=== PATIENT | male | born 1965 | race African-American/Black ===

== ENCOUNTER 2018-10-01 22:27 | Inpatient (IN) | payer OTHER, MEDICAID ==
[~2018-10-01] VITALS: Ht 182.9 cm; Wt 135.2 kg
[2018-10-01 22:33] VITALS: BP 151/82
[2018-10-01] MEDS ORDERED: HYDR100T79 PO (22:39)
[2018-10-01] MEDS ORDERED: LISI30TA6 PO (22:39)
[2018-10-01] MEDS ORDERED: TAMS0.4C96 PO (22:39)
--- NOTE | 2018-10-01 22:40 | NUR ---
ASSUMED CARE OF PT AT THIS TIME. C/O DIFFUSE ABDOMINAL PAIN X 3 DAYS. PT STATES BLACK STOOLS BEGAN EARLIER TODAY. PT STATES HE TAKES "BABY ASPIRIN" ONCE A DAY. AAOX4 WITH EVEN AND STEADY GAIT; PATIENT STATES PAIN OF 8/10; VSS; PATIENT POSITIONED FOR COMFORT; HOB ELEVATED; BEDRAILS UP X2; BED DOWN. ER MD MADE AWARE OF PT STATUS. WILL CONTINUE TO MONITOR.
--- NOTE | 2018-10-01 22:40 | NUR ---
PT AMB TO ER BED 8
[2018-10-01] MEDS ORDERED: NACL 0.9% 1,000 ML IV SCH (23:21)
[2018-10-01] MEDS ORDERED: fentaNYL 0.05 MG/ML VIAL IVP ONE (23:25)
[2018-10-01 23:53] LABS: BASOPHILS % (AUTO) 0.7 % (0.0-2.0); EOSINOPHILS # (AUTO) 0.2 K/uL (0-0.4); EOSINOPHILS % (AUTO) 3.4 % (0.0-4.0); HEMATOCRIT 38.2 % (36-52); LYMPHOCYTES # (AUTO) 1.6 K/uL (2.0-11.5); LYMPHOCYTES % (AUTO) 27.9 % (20.5-51.1); MEAN CORPUSCULAR HEMOGLOBIN 25 pg (27-31); MEAN CORPUSCULAR HGB CONC 31 g/dL (33-37); MEAN CORPUSCULAR VOLUME 78.8 fL (80-94); MONOCYTES # (AUTO) 0.6 K/uL (0.8-1.0); MONOCYTES % (AUTO) 10.5 % (1.7-9.3); NEUTROPHILS # (AUTO) 3.3 K/uL (1.8-7.7); NEUTROPHILS % (AUTO) 57.5 % (42.2-75.2); PLATELET COUNT (AUTO) 121 K/uL (140-450); RED BLOOD CELL COUNT(AUTO) 4.85 MIL/uL (4.20-6.10); RED CELL DISTRIBUTION WIDTH 15.4 % (11.6-13.7); WHITE BLOOD COUNT (AUTO) 5.7 K/uL (4.8-10.8)
[2018-10-02 00:12] LABS: ALBUMIN 3.4 g/dL (3.4-5.0); ANION GAP 16.7 (8-16); CARBON DIOXIDE 19.1 mmol/L (21-32); CREATININE 2.4 mg/dL (0.7-1.3); POTASSIUM 3.8 mmol/L (3.5-5.1); TOTAL BILIRUBIN 0.2 mg/dL (0.0-1.0)
--- NOTE | 2018-10-02 00:27 | NUR ---
IV 22 GA LT HAND, IVP/IVF MEDS GIVEN-NADR AT THIS TIME
[2018-10-02] MEDS ORDERED: ACETAMINOPHEN 325 MG TAB PO PRN (00:40)
[2018-10-02] MEDS ORDERED: ONDANSETRON 4 MG/2 ML VIAL IM/IVP PRN (00:40)
[2018-10-02] MEDS ORDERED: DOCUSATE SODIUM 100 MG GELCAP PO PRN (00:40)
--- NOTE | 2018-10-02 01:05 | NUR ---
Patient will be admitted to care of [facility]. Admitted to M/S. Will go to room 119A. Belongings list completed. Report to LISA PADRON.
--- NOTE | 2018-10-02 01:06 | NUR ---
Pt transferred to Med/Surg via 119A .
--- NOTE | 2018-10-02 01:10 | NUR ---
ADMITTED THIS 53 YEAR OLD MALE FROM ER PER PATY WITH CC OF BLACK STOOL, AMBULATED TO BED WITH STEADY GAIT, ASSESSMENT DONE, VITAL SIGNS STABLE, ABDOMINAL PAIN 6/10 AT THIS TIME, WILL MEDICATE PRN, NO N/V NOTED, ORIENTED TO ROOM AND CALL LIGHT, INSTRUCTED NPO EXCEPT MEDS, IVF OF NS FROM ER INFUSING WELL, PLAN OF CARE DISCUSSED, SAFETY MEASURES IN PLACE, CALL LIGHT WITHIN REACH.
[2018-10-02 01:30] VITALS: BP 141/80
[2018-10-02] MEDS ORDERED: HYDROcodone/APAP 10/325 MG 1 TAB TAB PO PRN (02:25)
[2018-10-02 02:39] LABS: PHOSPHORUS 4.1 mg/dL (2.5-4.9)
[2018-10-02 02:40] LABS: CHOL/HDL RATIO 4.2 (1-4.5); FREE T4 (FREE THYROXINE) 0.95 ng/dL (0.76-1.46)
[2018-10-02 02:41] LABS: THYROID STIMULATING HORMONE 0.7 uIU/mL (0.34-3.74)
[2018-10-02 03:24] LABS: APPEARANCE,URINE CLEAR (CLEAR); BILIRUBIN,URINE NEGATIVE (NEGATIVE); BLOOD, URINE NEGATIVE (NEGATIVE); COLOR,URINE YELLOW (YELLOW); LEUKOCYTE ESTERASE ,URINE NEGATIVE (NEGATIVE); NITRITE, URINE NEGATIVE (NEGATIVE); PH,URINE 5.5 (5.0-9.0); UGLUCOSE NEGATIVE (NEGATIVE)
--- NOTE | 2018-10-02 04:00 | NUR ---
PT STATED NORCO DOESN'T WORK AND HE STATED THE MEDICATION THAT WORK FOR HIS PAIN DURING HIS LAST SURGERY WAS DILAUDID, DR LEDESMA MADE AWARE AND HE WILL TALK TO PT, MONITORED CLOSELY.
[2018-10-02 04:17] LABS: BARBITURATE, URINE NEG. ng/ml (NEG <=200); BENZODIAZEPINE, URINE NEG. ng/mL (NEG <=200); CANNABINOID, URINE NEG. ng/mL (NEG <=50); COCAINE, URINE NEG. ng/mL (NEG <=300); OPIATE, URINE POS. ng/mL (NEG <=2000); PHENCYCLIDINE SCREEN,URINE NEG. ng/mL (NEG <=25)
[2018-10-02] MEDS ORDERED: LIDOCAINE VISCOUS 2% 20 ML UDC PO ONE (05:15)
[2018-10-02] MEDS ORDERED: ALUMINUM HYD/MAG/SIMETHICONE 30 ML UDC PO ONE (05:15)
[2018-10-02] MEDS ORDERED: DICYCLOMINE HCL LIQUID 10 MG/5 ML UDC PO ONE (05:15)
[2018-10-02] MEDS: NACL 0.9% 1,000 ML IV SCH ×3 (05:41→20:36)
--- NOTE | 2018-10-02 05:46 | NUR ---
GI COCKTAIL ADMINISTERED ORDERED, MAINTAINED ON NPO EXCEPT MEDS FOR CT A/P TODAY, IVF INFUSING WELL, MONITORED CLOSELY.
--- NOTE | 2018-10-02 06:33 | NUR ---
PT TAKEN TO CT DEPT VIA WHEELCHAIR FOR CT A/P WITHOUT CONTRAST.
--- NOTE | 2018-10-02 07:12 | NUR ---
PT AWAKE NO DISTRESS NOTED, REPORT GIVEN TO RN SITAL FOR CONTINUITY OF CARE.
--- NOTE | 2018-10-02 07:13 | NUR ---
RECIEVED REPORT FROM PM NURSE AT BEDSIDE. PT LYING ON HIS BED. PT IS AWAKE. INTRODUCED SELF AND UPDATED BOARD. PT IS ON SEIZURE PRECAUTION. SIDE RAILS HAS BEEN PADDED, BED ON LOWER SIDE. CALL LIGHT WITHIN PT REACH. PT STATES NOT TO HAVE BM , INFORMED HIM TO COLLECT STOOL FOR OCCULT TEST. PT STATES WILL INFORM ONCE HE WILL HAVE BM. NO SIGN OF DISTRESS NOTED. WILL CONTINUE TO MONITOR PT.
[2018-10-02] MEDS ORDERED: PANTOPRAZOLE 40 MG INJ VIAL IVP SCH (07:30)
[2018-10-02 08:04] VITALS: BP 140/88
--- NOTE | 2018-10-02 08:33 | NUR ---
PATIENT HAS BEEN SCREENED AND CATEGORIZED HIGH NUTRITION RISK. PATIENT WILL BE SEEN WITHIN 1-2 DAYS OF ADMISSION. 10/02/18-10/03/[address]
[2018-10-02] MEDS: hydrALAZINE 25 MG TAB PO SCH ×2 (08:57→20:33)
--- NOTE | 2018-10-02 09:00 | NUR ---
ADMINISTERED MEDS TO PT . TOLERATED WELL. STATES PT HAS PAIN, INCREASING IN HIS ABDOMEN. MD NOTIFIED. WILL ORDER [facility] FOR GI PAIN. NO SIGN OF DISTRESS NOTED. WILL CONTINUE TO MONITOR PT.
[2018-10-02] MEDS ORDERED: DICYCLOMINE 10 MG CAP PO PRN (10:05)
[2018-10-02] MEDS ORDERED: ALUMINUM HYD/MAG/SIMETHICONE 30 ML UDC PO PRN (10:05)
[2018-10-02] MEDS ORDERED: DICYCLOMINE 10 MG CAP PO SCH (10:30)
[2018-10-02] MEDS ORDERED: ALUMINUM HYD/MAG/SIMETHICONE 30 ML UDC PO SCH ×2 (10:30→21:00)
--- NOTE | 2018-10-02 10:45 | NUR ---
ADMINISTERED [facility] FOR PT. INFORMED THAT PT WILL BE SEEN BY MD IN 30 MIN. VERBALIZED UNDERSTANDING.
--- NOTE | 2018-10-02 11:30 | NUR ---
RECIEVED REPORT FROM SITAL AT BEDSIDE. PT LYING ON HIS BED. PT IS AWAKE. INTRODUCED SELF AND UPDATED BOARD. PT IS ON SEIZURE PRECAUTIONS. SIDE RAILS HAS BEEN PADDED, BED ON LOWER SIDE. CALL LIGHT WITHIN PT REACH. PT STATES NOT TO HAVE BM , INFORMED HIM TO COLLECT STOOL FOR OCCULT TEST. PT STATES WILL INFORM ONCE HE WILL HAVE BM. NO SIGN OF DISTRESS NOTED. WILL CONTINUE TO MONITOR PT.
--- NOTE | 2018-10-02 11:30 | NUR ---
REPORT GIVEN TO LISA JAMES . UPDATED ON PT.
--- NOTE | 2018-10-02 13:05 | NUR ---
PT SLEEPING IN BED. NO SIGNS OF PAIN. BED IN LOW POSITION. CALL LIGHT WITHIN REACH.
--- NOTE | 2018-10-02 13:40 | NUR ---
10/02/18 RD INITIAL ASSESSMENT COMPLETED PLEASE REFER TO NUTRITION ASSESSMENT UNDER CARE ACTIVITY FOR ESTIMATED NUTRITIONAL NEEDS. 1. CONTINUE CLEAR LIQUID DIET MEDICALLY NECESSARY 2. WHEN MEDICALLY APPROPRIATE, CONSIDER ADVANCING DIET TO FULL LIQUID 3. RD OFFERED EDUCATION ON HEALTHY NUTRITION THERAPY, PATIENT DECLINED 4. RD TO FOLLOW-UP 3-5 DAYS, MODERATE RISK MIGUEL [address]NG[address]
[2018-10-02] MEDS ORDERED: HYDROmorphone 1 MG/ML AMP IVP PRN (15:50)
[2018-10-02 16:00] VITALS: BP 163/95
--- NOTE | 2018-10-02 17:36 | NUR ---
ENDORSED PT TO RESERVATIONS AGENT FOR CONTINUITY IF CARE. PT IN STABLE CONDITION.
--- NOTE | 2018-10-02 19:25 | NUR ---
RECEIVED REPORT FROM DAY SHIFT RN. PT A&OX4. RESPIRATIONS ARE EQUAL AND UNLABORED. IV ON LEFT WRIST 22G INFUSING NS AT 100ML/H. SKIN IS INTACT. REVIEWED PLAN OF CARE. PT AWARE OF EGD FOR TOMORROW AND WILL BE NPO AFTER MIDNIGHT.ALL SAFETY MEASURES IN PLACE WILL CONTINUE TO MONITOR. CALL LIGHT WITHIN REACH.
--- NOTE | 2018-10-02 20:20 | NUR ---
PT COMPLAINING OF PAIN REQUESTING IV MEDICATION. SPOKE WITH DR LEDESMA WILL ORDER GI COCKTAIL FOR ABDOMINAL PAIN. WILL CONTINUE TO MONITOR.
[2018-10-02] MEDS ORDERED: oxyCODONE/APAP 5/325 MG 1 TAB TAB PO PRN (20:25)
--- NOTE | 2018-10-02 20:35 | NUR ---
DUE MEDICATIONS GIVEN PT TOLERATED WELL. ADMINISTERED MEDICATIONS FOR ABDOMEN PAIN WILL CONTINUE TO MONITOR. CALL LIGHT WITHIN REACH.
[2018-10-02] MEDS ORDERED: HYDROcodone/APAP 10/325 MG 1 TAB TAB ONE (20:38)
[2018-10-02] MEDS ORDERED: LIDOCAINE VISCOUS 2% 20 ML UDC PO SCH (21:00)
[2018-10-02] MEDS ORDERED: TAMSULOSIN 0.4 MG CAP PO SCH (21:00)
[2018-10-02] MEDS ORDERED: LISINOPRIL 10 MG TAB PO SCH (21:00)
[2018-10-02] MEDS ORDERED: DICYCLOMINE HCL LIQUID 10 MG/5 ML UDC PO SCH (21:00)
[2018-10-03] VITALS: BP 157/98
--- NOTE | 2018-10-03 | NUR ---
VITAL SIGNS ARE WITHIN NORMAL LIMITS. PAIN AT TOLERABLE LEVEL PER PATIENT. ALL NEEDS MET AT THIS TIME. CALL LIGHT WITHIN REACH.
--- NOTE | 2018-10-03 02:37 | NUR ---
PT SLEEPING. RESPIRATIONS ARE EQUAL AND UNLABORED. NO DISTRESS NOTED CALL LIGHT WITHIN REACH.
--- NOTE | 2018-10-03 04:15 | NUR ---
PT SLEEPING COMFORTABLY IN BED. NO DISTRESS NOTED. CALL LIGHT WITHIN REACH.
--- NOTE | 2018-10-03 05:46 | NUR ---
PT ASLEEP. NO DISTRESS NOTED. CALL LIGHT WITHIN REACH.
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
--- NOTE | 2018-10-03 06:35 | NUR ---
CALLED DR.AL MARTEL AND INFORMED THAT PT SIGNED AMA AND LEFT HOSPITAL.HE SUPPOSE TO HAVE EGD AT 729.
[2018-10-03] MEDS ORDERED: PANTOPRAZOLE 40 MG INJ VIAL IVP SCH (09:00)
== END 2018-10-03 06:40 | disposition left against medical advice (07) | DRG 377 ==
LOC: MED 22:27 → MTU 10-02 00:40
PROVIDERS: ADMIT General Practice; ATTEND General Practice
DX: K57.91 Diverticulosis of intestine, part unspecified, without perforation or abscess with bleeding (principal); N17.0 Acute kidney failure with tubular necrosis; E43 Unspecified severe protein-calorie malnutrition; Z68.41 Body mass index [BMI] 40.0-44.9, adult; D69.6 Thrombocytopenia, unspecified; E66.01 Morbid (severe) obesity due to excess calories; N40.0 Benign prostatic hyperplasia without lower urinary tract symptoms; I10 Essential (primary) hypertension; G40.909 Epilepsy, unspecified, not intractable, without status epilepticus; D64.9 Anemia, unspecified; Z53.21 Procedure and treatment not carried out due to patient leaving prior to being seen by health care provider; Z88.6 Allergy status to analgesic agent; Z88.5 Allergy status to narcotic agent; Z79.899 Other long term (current) drug therapy; Z90.49 Acquired absence of other specified parts of digestive tract; Z83.3 Family history of diabetes mellitus; Z82.49 Family history of ischemic heart disease and other diseases of the circulatory system
CPT/HCPCS: 36415; 71045; 80053; 80305; 81003; 82150; 82272; 83036; 83690; 83735; 83880; 84100; 84436; 84439; 84443; 84479; 84484; 85025; 85610; 85730; 86886; 86900; 86901; 87081; 93005; 96374; 99285; C9113; J1170; J3010; J7030; Q0092

== ENCOUNTER 2019-11-20 15:37 | Inpatient (IN) | payer OTHER, MEDICAID ==
[~2019-11-20] VITALS: Ht 177.8 cm; Wt 121.6 kg
[~2019-11-20 15:37] MED LIST: HYDR100T79 PO; LISI30TA6 PO; TAMS0.4C96 PO
[2019-11-20 15:41] VITALS: BP 165/98
--- NOTE | 2019-11-20 15:43 | NUR ---
PT AMB TO BED 3 WITH STEADY GAIT
--- NOTE | 2019-11-20 15:46 | NUR ---
PT AMB TO BATHROOM WITH STEADY GAIT
[2019-11-20] MEDS ORDERED: NACL 0.9% 1,000 ML IV ONE (15:50)
[2019-11-20] MEDS ORDERED: fentaNYL 0.05 MG/ML VIAL IVP ONE (16:10)
[2019-11-20] MEDS ORDERED: ONDANSETRON 4 MG/2 ML VIAL IVP ONE (16:10)
[2019-11-20] MEDS ORDERED: PANTOPRAZOLE 40 MG INJ VIAL IVP ONE (16:10)
--- NOTE | 2019-11-20 16:10 | NUR ---
C/O CONSTANT EPIGASTIC PAIN X 4-5 WITH DIARRHEA X 2 DAYS AND DARK BLACK STOOL TODAY. PT DENIES DIZZINESS, STATES FATIGUE. AMB WITH STEADY GAIT. STATES WAS ADMITTED HERE 2 MONTHS AGO. PREVIOUS RECORDS SHOW THAT PT WAS ADMITTED HERE IN MID SEP 2019 WITH DX OF GI BLEED. PMH- HTN, BPH, CHOLECYSTECTOMY
--- NOTE | 2019-11-20 16:13 | NUR ---
DR HOSKINS EVALUATING PT AT BEDSIDE
--- NOTE | 2019-11-20 16:17 | NUR ---
SCREW MACHINE TENDER AT BEDSIDE
[2019-11-20 16:52] LABS: BASOPHILS % (AUTO) 0.7 % (0.0-2.0); EOSINOPHILS # (AUTO) 0.1 K/uL (0-0.4); EOSINOPHILS % (AUTO) 2.2 % (0.0-4.0); HEMATOCRIT 32.8 % (36-52); HEMOGLOBIN 10.6 g/dL (12.0-18.0); LYMPHOCYTES # (AUTO) 1.4 K/uL (2.0-11.5); LYMPHOCYTES % (AUTO) 25.7 % (20.5-51.1); MEAN CORPUSCULAR HEMOGLOBIN 27 pg (27-31); MEAN CORPUSCULAR HGB CONC 32 g/dL (33-37); MEAN CORPUSCULAR VOLUME 82.3 fL (80-94); MONOCYTES # (AUTO) 0.4 K/uL (0.8-1.0); MONOCYTES % (AUTO) 8.2 % (1.7-9.3); NEUTROPHILS # (AUTO) 3.3 K/uL (1.8-7.7); NEUTROPHILS % (AUTO) 63.2 % (42.2-75.2); PLATELET COUNT (AUTO) 145 K/uL (140-450); RED BLOOD CELL COUNT(AUTO) 3.98 MIL/uL (4.20-6.10); RED CELL DISTRIBUTION WIDTH 15.9 % (11.6-13.7); WHITE BLOOD COUNT (AUTO) 5.3 K/uL (4.8-10.8)
--- NOTE | 2019-11-20 16:52 | NUR ---
GAVE PT URINAL AND PLACED HAT IN BATHROOM. ASKED PT TO PROVIDE STOOL SAMPLE ONLY INTO HAT.
--- NOTE | 2019-11-20 17:00 | NUR ---
STOOL SAMPLE COLLECTED AND WILL SEND TO LAB.
[2019-11-20 17:16] LABS: ALBUMIN 2.9 g/dL (3.4-5.0); CREATININE 3.4 mg/dL (0.6-1.3); POTASSIUM 4.2 mmol/L (3.5-5.1); TOTAL BILIRUBIN 0.1 mg/dL (0.0-1.0)
[2019-11-20 17:17] LABS: ANION GAP 14.6 (8-16); CARBON DIOXIDE 22.6 mmol/L (21-32)
[2019-11-20 17:20] LABS: PROTHROMBIN TIME 9.8 secs (10.8-13.4)
--- NOTE | 2019-11-20 17:24 | NUR ---
IV ON RT AC 22 NOT INFUSING WELL. VERY DIFFICULT TO PUSH IV NS THROUGH.
--- NOTE | 2019-11-20 17:26 | NUR ---
ASKED FILM CLEANER IAN TO ATTEMPT IV ACCESS
--- NOTE | 2019-11-20 17:38 | NUR ---
DR HOSKINS MADE AWARE UNABLE TO OBTAIN IV ACCESS DESPITE MULTIPLE ATTEMPTS
--- NOTE | 2019-11-20 17:41 | NUR ---
WILNER GONZALEZ AT BEDSIDE ATTEMPTING IV ACCESS
--- NOTE | 2019-11-20 17:52 | NUR ---
DR HOSKINS SPEAKING WITH PT AT BEDSIDE. DR YODER PT DID NOT RECEIVE ALL ORDERED MEDS DUE TO POOR IV ACCESS.
[2019-11-20] MEDS ORDERED: HYDROcodone/APAP 5/325 MG 1 TAB TAB PO ONE (17:55)
[2019-11-20] MEDS ORDERED: DOCUSATE SODIUM 100 MG GELCAP PO PRN (18:25)
[2019-11-20] MEDS ORDERED: ACETAMINOPHEN 325 MG TAB PO PRN (18:25)
[2019-11-20] MEDS ORDERED: HYDROcodone/APAP 5/325 MG 1 TAB TAB PO PRN (18:25)
[2019-11-20] MEDS ORDERED: ONDANSETRON 4 MG/2 ML VIAL IM/IVP PRN (18:25)
--- NOTE | 2019-11-20 18:37 | NUR ---
LAB STATES THEY DO HAVE THE STOOL SAMPLE. MADE THEM AWARE THAT THERE IS ORDER FOR FECAL OCCULT.
--- NOTE | 2019-11-20 18:42 | NUR ---
MADE CATHY BORDEN AWARE OF PICC LINE INSERTION ORDER.
[2019-11-20 19:10] LABS: AMYLASE 164 U/L (25-115); FREE T4 (FREE THYROXINE) 0.86 ng/dL (0.76-1.46); LACTATE DEHYDROGENASE 269 U/L (85-227); LIPASE 263 U/L (73-393); MAGNESIUM 2.1 mg/dL (1.8-2.4); PHOSPHORUS 3.1 mg/dL (2.5-4.9); THYROID STIMULATING HORMONE 0.49 uIU/mL (0.34-3.74)
[2019-11-20] MEDS ORDERED: LORazepam 2 MG/ML VIAL IM/IVP PRN (19:15)
[2019-11-20 19:18] LABS: APPEARANCE,URINE CLEAR (CLEAR); BILIRUBIN,URINE NEGATIVE (NEGATIVE); BLOOD, URINE NEGATIVE (NEGATIVE); COLOR,URINE YELLOW (YELLOW); LEUKOCYTE ESTERASE ,URINE NEGATIVE (NEGATIVE); NITRITE, URINE NEGATIVE (NEGATIVE); UGLUCOSE NEGATIVE (NEGATIVE)
[2019-11-20 19:23] LABS: BARBITURATE, URINE NEG. ng/ml (NEG <=200); BENZODIAZEPINE, URINE NEG. ng/mL (NEG <=200); CANNABINOID, URINE NEG. ng/mL (NEG <=50); COCAINE, URINE NEG. ng/mL (NEG <=300); OPIATE, URINE NEG. ng/mL (NEG <=2000); PHENCYCLIDINE SCREEN,URINE NEG. ng/mL (NEG <=25)
[2019-11-20 19:28] LABS: HYALINE CASTS, URINE 0-10 /LPF (None Seen); RBC,URINE 0 /HPF (0-5); WBC,URINE 0 /HPF (0-5)
[2019-11-20] MEDS ORDERED: OMEP20TC10 PO (19:29)
[2019-11-20] MEDS ORDERED: HYDR100T79 PO (19:29)
[2019-11-20] MEDS ORDERED: AMLO10TA PO (19:29)
[2019-11-20] MEDS ORDERED: SPIR25TA20 PO (19:29)
[2019-11-20] MEDS ORDERED: LEVE1000 PO (19:29)
[2019-11-20] MEDS ORDERED: LISI40TA4 PO (19:29)
[2019-11-20] MEDS ORDERED: CARV25TA PO (19:29)
[2019-11-20] MEDS ORDERED: ISOS60TE3 PO (19:29)
[2019-11-20 20:40] VITALS: BP 153/91
--- NOTE | 2019-11-20 20:40 | NUR ---
ADMITTED A 54 YEAR OLD MALE. NO APPARENT DISTRESS NOTED. REVIEWED CURRENT PLAN OF CARE. ORIENTED TO ENVIRONMENT, HOSPITAL ROUTINE AND ROOM. WILL CONTINUE TO MONITOR.
--- NOTE | 2019-11-20 20:45 | NUR ---
PT ADMITTED TO [facility] RM 111B. TRANSFERRED VIA [facility] WITH DEMETRIO MOSELEY; STABLE CONDITION. REPORT GIVEN TO PENG GONZALEZ; TRANSFER OF CARE THIS TIME.
[2019-11-20] MEDS ORDERED: NON-FORMULARY ITEM (Lisinopril 40 MG) PO SCH (21:00)
[2019-11-20] MEDS: CARVEDILOL 12.5 MG TAB PO SCH (21:23)
[2019-11-20] MEDS: levETIRAcetam 500 MG TAB PO SCH (21:24)
[2019-11-20] MEDS: LISINOPRIL 20 MG TAB PO SCH (21:24)
--- NOTE | 2019-11-20 22:30 | NUR ---
PATIENT AWAKE IN BED. WATCHING ON PHONE. NO APPARENT DISTRESS NOTED. WILL CONTINUE TO MONITOR.
--- NOTE | 2019-11-20 23:00 | NUR ---
PICC LINE INSERTED AT 2225. PER PICC LINE NURSE ANDRY "OKAY FOR USE".
[2019-11-20] MEDS: NACL 0.9% 1,000 ML IV SCH (23:28)
[2019-11-20] MEDS ORDERED: PANTOPRAZOLE 40 MG INJ VIAL ONE (23:47)
[2019-11-21] VITALS: BP 142/94
[2019-11-21] MEDS: PANTOPRAZOLE 80 MG in NACL 0.9% 100 ML IV SCH ×2 (00:01→07:28)
--- NOTE | 2019-11-21 00:25 | NUR ---
PATIENT AWAKE IN BED. NO APPARENT DISTRESS NOTED. WILL CONTINUE TO MONITOR.
[2019-11-21 00:42] LABS: BASOPHILS % (AUTO) 0.9 % (0.0-2.0); EOSINOPHILS # (AUTO) 0.1 K/uL (0-0.4); EOSINOPHILS % (AUTO) 3.4 % (0.0-4.0); HEMATOCRIT 29.8 % (36-52); HEMOGLOBIN 9.7 g/dL (12.0-18.0); LYMPHOCYTES # (AUTO) 1.4 K/uL (2.0-11.5); LYMPHOCYTES % (AUTO) 31.6 % (20.5-51.1); MEAN CORPUSCULAR HEMOGLOBIN 27 pg (27-31); MEAN CORPUSCULAR HGB CONC 33 g/dL (33-37); MONOCYTES # (AUTO) 0.4 K/uL (0.8-1.0); MONOCYTES % (AUTO) 8.8 % (1.7-9.3); NEUTROPHILS # (AUTO) 2.4 K/uL (1.8-7.7); NEUTROPHILS % (AUTO) 55.3 % (42.2-75.2); PLATELET COUNT (AUTO) 146 K/uL (140-450); RED BLOOD CELL COUNT(AUTO) 3.63 MIL/uL (4.20-6.10); RED CELL DISTRIBUTION WIDTH 15.9 % (11.6-13.7); WHITE BLOOD COUNT (AUTO) 4.4 K/uL (4.8-10.8)
[2019-11-21] MEDS ORDERED: HYDROmorphone 1 MG/ML AMP IVP SCH (01:00)
--- NOTE | 2019-11-21 02:20 | NUR ---
PATIENT AWAKE IN BED. NO APPARENT DISTRESS NOTED. WILL CONTINUE TO MONITOR.
--- NOTE | 2019-11-21 03:45 | NUR ---
TRANSFERRED PATIENT TO ROOM 118 WITH ALL PERSONAL BELONGINGS.
[2019-11-21 04:00] VITALS: BP 142/94
--- NOTE | 2019-11-21 04:20 | NUR ---
PATIENT ASLEEP IN BED. NO APPARENT DISTRESS NOTED. WILL CONTINUE TO MONITOR.
[2019-11-21] MEDS: NACL 0.9% 1,000 ML IV SCH ×3 (04:22→21:03)
[2019-11-21] MEDS ORDERED: PANTOPRAZOLE 40 MG INJ VIAL ONE (05:53)
--- NOTE | 2019-11-21 06:15 | NUR ---
PATIENT AWAKE IN BED. NO APPARENT DISTRESS NOTED. WILL CONTINUE TO MONITOR.
--- NOTE | 2019-11-21 07:30 | NUR ---
ENDORSED TO AM SHIFT NURSE FOR CONTINUITY OF CARE.
--- NOTE | 2019-11-21 07:30 | NUR ---
RECEIVED REPORT FROM MICROFILM PROCESSOR NURSE PENG FOR CONTINUITY OF CARE. PT IN STABLE CONDITION. RESPIRATIONS EVEN AND UNLABORED, ROOM AIR. IV ACCESS INTACT AND PATENT. SAFETY MEASURES IN PLACE. BED IN LOW POSITION. CALL LIGHT AT BEDSIDE. WILL CONTINUE TO MONITOR.
[2019-11-21 07:34] LABS: BASOPHILS % (AUTO) 0.4 % (0.0-2.0); EOSINOPHILS # (AUTO) 0.1 K/uL (0-0.4); EOSINOPHILS % (AUTO) 4.2 % (0.0-4.0); HEMATOCRIT 29.8 % (36-52); HEMOGLOBIN 9.6 g/dL (12.0-18.0); LYMPHOCYTES # (AUTO) 1.1 K/uL (2.0-11.5); LYMPHOCYTES % (AUTO) 31.7 % (20.5-51.1); MEAN CORPUSCULAR HEMOGLOBIN 27 pg (27-31); MEAN CORPUSCULAR HGB CONC 32 g/dL (33-37); MONOCYTES # (AUTO) 0.4 K/uL (0.8-1.0); MONOCYTES % (AUTO) 11.1 % (1.7-9.3); NEUTROPHILS # (AUTO) 1.9 K/uL (1.8-7.7); NEUTROPHILS % (AUTO) 52.6 % (42.2-75.2); PLATELET COUNT (AUTO) 145 K/uL (140-450); RED CELL DISTRIBUTION WIDTH 16.1 % (11.6-13.7); WHITE BLOOD COUNT (AUTO) 3.6 K/uL (4.8-10.8)
[2019-11-21 07:38] LABS: CREATININE 3.4 mg/dL (0.6-1.3); POTASSIUM 4.2 mmol/L (3.5-5.1)
[2019-11-21 07:40] LABS: ANION GAP 11.4 (8-16); CARBON DIOXIDE 24.8 mmol/L (21-32)
[2019-11-21 07:42] LABS: PHOSPHORUS 3.8 mg/dL (2.5-4.9)
[2019-11-21 07:48] LABS: CHOL/HDL RATIO 4.5 (1-4.5)
[2019-11-21 08:00] VITALS: BP 168/66
[2019-11-21] MEDS: hydrALAZINE 25 MG TAB PO SCH ×4 (09:33→17:00)
[2019-11-21] MEDS: amLODIPine 5 MG TAB PO SCH (09:34)
[2019-11-21] MEDS: ISOSORBIDE MONONITRATE 30 MG TABER PO SCH (09:34)
[2019-11-21] MEDS: CARVEDILOL 12.5 MG TAB PO SCH ×2 (09:34→21:00)
[2019-11-21] MEDS: levETIRAcetam 500 MG TAB PO SCH ×2 (09:34→21:03)
[2019-11-21] MEDS: SPIRONOLACTONE 25 MG TAB PO SCH (09:35)
[2019-11-21] MEDS: TAMSULOSIN 0.4 MG CAP PO SCH (09:35)
--- NOTE | 2019-11-21 09:40 | NUR ---
GAVE ORDERED DUE MEDICATIONS AT THIS TIME. PT TOLERATED WELL. WILL CONTINUE TO MONITOR.
--- NOTE | 2019-11-21 10:07 | NUR ---
PATIENT HAS BEEN SCREENED AND CATEGORIZED MODERATE NUTRITION RISK. PATIENT WILL BE SEEN WITHIN 3-5 DAYS OF ADMISSION. 11/23/19 11/25/[address]
[2019-11-21] MEDS: HYDROmorphone 1 MG/ML AMP IVP PRN ×2 (10:49→15:02)
--- NOTE | 2019-11-21 10:57 | NUR ---
GAVE PRN PAIN MEDICATION PER PT REQUEST AT THIS TIME. PT TOLERATED WELL.
[2019-11-21 12:00] VITALS: BP 108/60
[2019-11-21] MEDS ORDERED: MAGNESIUM CITRATE 300 ML BTL ONE (12:20)
[2019-11-21] MEDS ORDERED: MAGNESIUM CITRATE 300 ML BTL PO SCH (13:00)
--- NOTE | 2019-11-21 13:38 | NUR ---
DC PLANNIN YRS OLD MALE PATIENT WAS ADMITTED FROM HOME WITH A DX OF GI BLEEDING. PT HAS A HX OF GASTROINTESTINAL BLEEDING ,HTN PROSTATE CA S/P TURP AND SEIZURE. H/H WNL ADMINISTERED IVF, STARTED ON PROTONIX DRIP AND GI CONSULT WITH DR FUNK FOR POSSIBLE EGD. DC PLAN TO GO HOME OR TRANSFER TO THE CONTRACTED FACILITY WHEN STABLE FAXED THE POST STABILIZATION FORM AND CLINICALS TO [facility] FAX [phone]
[2019-11-21] MEDS ORDERED: fentaNYL 0.05 MG/ML VIAL ONE (13:44)
[2019-11-21] MEDS ORDERED: MIDAZOLAM 2 MG/2 ML VIAL ONE (13:45)
--- NOTE | 2019-11-21 13:45 | NUR ---
OFF UNIT FOR COLONOSCOPY AND EGD WITH SUHAS ONOFRE. PT IN STABLE CONDITION.
--- NOTE | 2019-11-21 13:49 | NUR ---
Sales Representative Girls[employer]arel Note: Basic Screen: Yes High Risk DC Screen Soham: REBECA Kamara Relationship: BROTHER Pre-Admission Living Arrangements: Lives Alone Prior ADL Independent Current Home Health Name/Tel: N/A Current DME/02 Name/Tel: N/A Current Hospice Name/Tel: N/A Current Dialysis Name/Tel: N/A Healthcare Decision Maker: Patient Advance Directive No Physician Orders for Life Sustaining Treatment Form No Patient/Family Have Educational Needs No Information Taught: Advance Directive Person Taught: Patient Teaching Tools: Verbal Factors Affecting Learning: None Participation Level: Refused Needs Additional Education: No Discipline: Case Mgt/Social Svcs Tentative Discharge Plan/Destination: No Needs Identified Will require assistance post discharge: No Referred to Shipping And Receiving Coordinator: No Tentative Discharge Plan Summary: Patient is a 54-year-old male admitted for GI bleed. Patient has PMHX of resistant essential hypertension on multiple antihypertensive medication, prostate cancer, and seizure disorder. Patient was admitted from home where he lives alone. SW met with patient at bedside to verify demographics. Patient stated that he lives at [address] [place] [address]. Patient reports no history of mental heatlh and no history of substance abuse. Patient's tentative discharge plan is to return home. No further needs identified. Signature: ELISA Aguiar Date: Nov 21, 2019 Time: 13:48
[2019-11-21] MEDS ORDERED: MIDAZOLAM 2 MG/2 ML VIAL IVP ONE (13:55)
[2019-11-21] MEDS ORDERED: fentaNYL 0.05 MG/ML VIAL IVP ONE (13:58)
[2019-11-21 14:10] LABS: BASOPHILS % (AUTO) 0.6 % (0.0-2.0); EOSINOPHILS # (AUTO) 0.2 K/uL (0-0.4); EOSINOPHILS % (AUTO) 3.6 % (0.0-4.0); HEMATOCRIT 31.1 % (36-52); LYMPHOCYTES # (AUTO) 1.1 K/uL (2.0-11.5); LYMPHOCYTES % (AUTO) 21.9 % (20.5-51.1); MEAN CORPUSCULAR HEMOGLOBIN 27 pg (27-31); MEAN CORPUSCULAR HGB CONC 32 g/dL (33-37); MEAN CORPUSCULAR VOLUME 82.6 fL (80-94); MONOCYTES # (AUTO) 0.5 K/uL (0.8-1.0); MONOCYTES % (AUTO) 10.1 % (1.7-9.3); NEUTROPHILS # (AUTO) 3.1 K/uL (1.8-7.7); NEUTROPHILS % (AUTO) 63.8 % (42.2-75.2); PLATELET COUNT (AUTO) 154 K/uL (140-450); RED BLOOD CELL COUNT(AUTO) 3.76 MIL/uL (4.20-6.10); RED CELL DISTRIBUTION WIDTH 15.8 % (11.6-13.7); WHITE BLOOD COUNT (AUTO) 4.8 K/uL (4.8-10.8)
--- NOTE | 2019-11-21 14:30 | NUR ---
PT BACK ON UNIT AFTER COLONOSCOPY AND EGD WITH SUHAS ONOFRE. PT IN STABLE CONDITION.
[2019-11-21] MEDS ORDERED: BOWEL EVACUANT DRINK 4,000 ML PDS PO SCH (15:00)
[2019-11-21 16:00] VITALS: BP 117/60
--- NOTE | 2019-11-21 16:30 | NUR ---
PT ON PHONE AT THIS TIME. RESPIRATIONS EVEN AND UNLABORED. BED IN LOW POSITION. CALL LIGHT AT BEDSIDE. WILL CONTINUE TO MONITOR.
[2019-11-21] MEDS: SENNA 8.6 MG TAB PO SCH (18:03)
[2019-11-21] MEDS: LACTULOSE 20 GM/30 ML UDC PO SCH ×2 (18:03→21:03)
--- NOTE | 2019-11-21 19:10 | NUR ---
CRITICAL LAB POSITIVE C-DIFF. DR. JANIS YODER.
--- NOTE | 2019-11-21 19:15 | NUR ---
GAVE REPORT TO GLASS PRODUCTION MACHINE OPERATOR NURSE FOR CONTINUITY OF CARE. PT IN STABLE CONDITION.
[2019-11-21 19:28] LABS: BASOPHILS % (AUTO) 0.4 % (0.0-2.0); EOSINOPHILS # (AUTO) 0.1 K/uL (0-0.4); EOSINOPHILS % (AUTO) 3.1 % (0.0-4.0); HEMATOCRIT 28.6 % (36-52); HEMOGLOBIN 9.3 g/dL (12.0-18.0); LYMPHOCYTES % (AUTO) 23.7 % (20.5-51.1); MEAN CORPUSCULAR HEMOGLOBIN 27 pg (27-31); MEAN CORPUSCULAR HGB CONC 33 g/dL (33-37); MEAN CORPUSCULAR VOLUME 82.2 fL (80-94); MONOCYTES # (AUTO) 0.3 K/uL (0.8-1.0); MONOCYTES % (AUTO) 8.1 % (1.7-9.3); NEUTROPHILS # (AUTO) 2.7 K/uL (1.8-7.7); NEUTROPHILS % (AUTO) 64.7 % (42.2-75.2); PLATELET COUNT (AUTO) 138 K/uL (140-450); RED BLOOD CELL COUNT(AUTO) 3.48 MIL/uL (4.20-6.10); RED CELL DISTRIBUTION WIDTH 15.8 % (11.6-13.7); WHITE BLOOD COUNT (AUTO) 4.2 K/uL (4.8-10.8)
[2019-11-21 20:51] VITALS: BP 136/72
[2019-11-21] MEDS: LISINOPRIL 20 MG TAB PO SCH (21:03)
[2019-11-21] MEDS: VANCOMYCIN 500 MG VIAL PO SCH (21:18)
--- NOTE | 2019-11-21 22:00 | NUR ---
INFORMED PT. THAT HE NEEDS TO CONTINUE WITH GOLYTLY DRINK. PROS AND CONS OF TAKING OR NOT TAKING IT EXPLAINED. MADE RESIDENT MD OF PT. HESITANT TO DRINK IT. PER RESIDENT "I WILL TALK TO HIM"
--- NOTE | 2019-11-22 | NUR ---
REMINDED PT. TO CONTINUE WITH GOLYETLY . TRIED TO POUR SOME IN THE CUP. "NO , I WILL DO IT MYSELF"
[2019-11-22] MEDS: VANCOMYCIN 500 MG VIAL PO SCH ×5 (00:54→23:05)
[2019-11-22] MEDS: HYDROmorphone 1 MG/ML AMP IVP PRN ×4 (00:54→19:46)
[2019-11-22 01:00] LABS: BASOPHILS % (AUTO) 0.9 % (0.0-2.0); EOSINOPHILS # (AUTO) 0.1 K/uL (0-0.4); EOSINOPHILS % (AUTO) 3.9 % (0.0-4.0); HEMATOCRIT 28.9 % (36-52); HEMOGLOBIN 9.4 g/dL (12.0-18.0); LYMPHOCYTES % (AUTO) 26.7 % (20.5-51.1); MEAN CORPUSCULAR HEMOGLOBIN 27 pg (27-31); MEAN CORPUSCULAR HGB CONC 33 g/dL (33-37); MEAN CORPUSCULAR VOLUME 82.6 fL (80-94); MONOCYTES # (AUTO) 0.3 K/uL (0.8-1.0); MONOCYTES % (AUTO) 9.1 % (1.7-9.3); NEUTROPHILS # (AUTO) 2.2 K/uL (1.8-7.7); NEUTROPHILS % (AUTO) 59.4 % (42.2-75.2); PLATELET COUNT (AUTO) 137 K/uL (140-450); RED CELL DISTRIBUTION WIDTH 16.1 % (11.6-13.7); WHITE BLOOD COUNT (AUTO) 3.7 K/uL (4.8-10.8)
[2019-11-22 01:06] VITALS: BP 140/74
--- NOTE | 2019-11-22 02:15 | NUR ---
SLEEPING. NO RESTLESSNESS.
--- NOTE | 2019-11-22 02:33 | NUR ---
WOKE UP AND WENT RESTROOM. NOTED STOOL DARK BROWN COLORED AND STICKY IN CONSISTENCY/SEMI SOLID STILL. ENCOURAGED TO DRINK MORE. " I AM DRINKING" INFORMED RESIDENT MD OF PT. SLOWLY DRINKING IT. "OK" IT IS UP TO MD /GI IF HE WILL CONTINUE WITH PROCEDURE IT OR NOT."
--- NOTE | 2019-11-22 02:56 | NUR ---
PT. REQUESTING FOR MORE PAIN RELIEVER RT STOMACH HURTS WHEN HE GOES BM. INFORMED RESIDENT MD OF PT. REQUEST THAT HE WIIL DRINK MORE OF THE GOLYETLY IF THE MD WILL INCREASE HIS PAIN RELIEVER. PER RESIDENT MD "NO" HE NEEDS TO GO MORE AND MORE PAIN RELIEVER WILL JUST SLOW DOWN THE BM PROCESS. EXPLAINED TO PT. STATED IT HURTS IF HE GOES BM. SITTING AT EDGE OF BED AND JUST CAME BACK FROM RESTROOM . ENCOURAGED TO DRINK SOME MORE .
[2019-11-22 04:00] VITALS: BP 147/80
--- NOTE | 2019-11-22 04:28 | NUR ---
PT. AWAKE AND LAYING IN BED RIGHT NOW WATCHING SOMETHING IN HIS CELL PHONE. ENCOURAGED TO DRINK MORE OF HIS GOLYTELY. NO RESPONSE. STATED HE WILL GO HOME THIS MORNING. REMINDED PT. TO CALL ME FOR THE NEXT BM MOVEMENT HE WILL HAVE.
[2019-11-22] MEDS: metroNIDAZOLE 500 MG/NS PREMIX 100 ML IV SCH ×3 (05:10→21:14)
--- NOTE | 2019-11-22 05:31 | NUR ---
HAD BM 5 X PER PT. UNABLE TO SHOW ME THE LAST BM I HAD REMINDED HIM. REFUSED TO TAKE P.O. VANCOMYCIN FOR THE 6 AM DOSE. PROS AND CONS EXPLAINED. STILL REFUSED TO TAKE IT. RESIDENT MD AWARE.
--- NOTE | 2019-11-22 06:37 | NUR ---
PT. CALLED ME TO SHOW HIS LATEST BM. BM SHOWN TO ME BLOODY IN COLOR BUT CLEAR. STATED HE WILL STOP DRINKING THE REST OF THE GOLYETLY LEFT . REQUESTED FOR PAIN RELIEVER. MEDICATED ORDERED. ABLE TO VERBALIZE NEEDS WELL.
[2019-11-22 07:11] LABS: BASOPHILS % (AUTO) 0.6 % (0.0-2.0); EOSINOPHILS # (AUTO) 0.2 K/uL (0-0.4); EOSINOPHILS % (AUTO) 4.5 % (0.0-4.0); HEMOGLOBIN 9.1 g/dL (12.0-18.0); LYMPHOCYTES % (AUTO) 28.2 % (20.5-51.1); MEAN CORPUSCULAR HEMOGLOBIN 27 pg (27-31); MEAN CORPUSCULAR HGB CONC 32 g/dL (33-37); MEAN CORPUSCULAR VOLUME 82.9 fL (80-94); MONOCYTES # (AUTO) 0.3 K/uL (0.8-1.0); MONOCYTES % (AUTO) 9.6 % (1.7-9.3); NEUTROPHILS % (AUTO) 57.1 % (42.2-75.2); PLATELET COUNT (AUTO) 132 K/uL (140-450); RED BLOOD CELL COUNT(AUTO) 3.37 MIL/uL (4.20-6.10); RED CELL DISTRIBUTION WIDTH 16.2 % (11.6-13.7); WHITE BLOOD COUNT (AUTO) 3.6 K/uL (4.8-10.8)
[2019-11-22 07:28] LABS: ANION GAP 12.5 (8-16); CARBON DIOXIDE 23.8 mmol/L (21-32); CREATININE 3.2 mg/dL (0.6-1.3); POTASSIUM 4.3 mmol/L (3.5-5.1)
[2019-11-22 07:42] LABS: MAGNESIUM 2.2 mg/dL (1.8-2.4); PHOSPHORUS 3.5 mg/dL (2.5-4.9)
[2019-11-22] MEDS ORDERED: fentaNYL 0.05 MG/ML VIAL ONE (07:50)
[2019-11-22] MEDS ORDERED: MIDAZOLAM 2 MG/2 ML VIAL ONE (07:50)
--- NOTE | 2019-11-22 07:51 | NUR ---
RECEIVED REPORT FROM DIRECTOR PATIENT FINANCIAL SERVICES NURSE FOR CONTINUITY OF CARE. PT IS AAOX4, ABLE TO MAKE NEEDS KNOWN. RESPIRATIONS EVEN AND UNLABORED, ON RM AIR. PICC LINE TO THE UPPER RIGHT ARM. SKIN INTACT. SEIZURE PRECAUTIONS IN PLACE. SAFETY MEASURES IN PLACE. BED IN LOW POSITION. CALL LIGHT AT BEDSIDE. WILL MONITOR PT CLOSELY.
[2019-11-22 08:00] VITALS: BP 133/76
[2019-11-22] MEDS: VANCOMYCIN 1,000 MG VIAL ONE ×2 (08:26→08:36)
[2019-11-22] MEDS ORDERED: fentaNYL 0.05 MG/ML VIAL IVP ONE (08:32)
[2019-11-22] MEDS ORDERED: MIDAZOLAM 2 MG/2 ML VIAL IVP ONE (08:35)
[2019-11-22] MEDS: SENNA 8.6 MG TAB PO SCH ×2 (09:00→12:40)
[2019-11-22] MEDS: LACTULOSE 20 GM/30 ML UDC PO SCH ×2 (09:00→12:39)
--- NOTE | 2019-11-22 10:15 | NUR ---
ADMINISTERED MORNING MEDS TO PT. PT TOLERATED WELL. ALL NEEDS MET. WILL CONTINUE TO ROUND FREQUENTLY ON PT. BED IN LOW POSITION, CALL LIGHT WITHIN REACH. WILL CONTINUE TO ROUND FREQUENTLY ON PT.
[2019-11-22] MEDS: NACL 0.9% 1,000 ML IV SCH ×2 (10:22→22:07)
[2019-11-22] MEDS: levETIRAcetam 500 MG TAB PO SCH ×2 (10:34→21:13)
[2019-11-22] MEDS: TAMSULOSIN 0.4 MG CAP PO SCH (10:35)
[2019-11-22] MEDS: ISOSORBIDE MONONITRATE 30 MG TABER PO SCH (10:36)
[2019-11-22] MEDS: CARVEDILOL 12.5 MG TAB PO SCH ×2 (10:37→21:14)
[2019-11-22] MEDS: amLODIPine 5 MG TAB PO SCH (10:37)
[2019-11-22] MEDS: SPIRONOLACTONE 25 MG TAB PO SCH (10:37)
[2019-11-22] MEDS: hydrALAZINE 25 MG TAB PO SCH ×3 (10:37→18:05)
[2019-11-22 12:00] VITALS: BP 123/63
--- NOTE | 2019-11-22 12:40 | NUR ---
PT VANCOMYCIN NOT DELIVERED BY PHARMACY. I WALKED OVER TO PHARMACY BUT SIGN ON DOOR STATES "OUT TO LUNCH". PT VANCOMYCIN WILL BE LATE DUE TO THIS.
--- NOTE | 2019-11-22 13:19 | NUR ---
PT RESTING IN BED. ALL NEEDS MET. WILL CONTINUE TO ROUND FREQUENTLY ON PT. BED IN LOW POSITION, CALL LIGHT WITHIN REACH.
--- NOTE | 2019-11-22 15:20 | NUR ---
PT ASLEEP IN BED. DOWNGRADED TO MED SURG. ALL NEEDS MET. WILL CONTINUE TO ROUND FREQUENTLY ON PT. BED IN LOW POSITION, CALL LIGHT WITHIN REACH.
[2019-11-22 16:00] VITALS: BP 114/61
--- NOTE | 2019-11-22 17:34 | NUR ---
PT ASLEEP. ALL NEEDS MET.
--- NOTE | 2019-11-22 19:32 | NUR ---
REPORT RECEIVED FROM AM NURSE AT BEDSIDE. PT IN STABLE CONDITION. AAOX4. INTRODUCED SELF TO PT. BOARD UPDATED. PT HAS COMPLAINTS OF PAIN. ALREADY MEDICATED. NO SOB. AFEBRILE. PT IS AMBULATORY. IV SITE R UA PICC DOUBLE LUMEN RUNNING NS@100ML/HR PATENT AND INTACT. SKIN WARM, DRY, AND INTACT WITH NO OPEN WOUNDS. BED LOCKED IN LOW POSITION. CALL CARRASCO WITHIN REACH. SAFETY PRECAUTION IN PLACE. ALL NEEDS MET AT THIS TIME.
--- NOTE | 2019-11-22 20:10 | NUR ---
ENDORSED PT TO SHINGLE GRADER FOR CONTINUITY OF CARE. PT IN STABLE CONDITION AT THIS TIME.
[2019-11-22] MEDS: LISINOPRIL 20 MG TAB PO SCH (21:14)
--- NOTE | 2019-11-22 21:14 | NUR ---
TERRY AGUDELO. COREG, KEPPRA, AND ZESTRIL GIVEN PO. PT TOLERATED WELL.
[2019-11-22] MEDS ORDERED: HYDROmorphone PFS 2 MG/ML SYR IVP SCH (22:00)
--- NOTE | 2019-11-22 22:08 | NUR ---
PT COMPLAINS THAT THE PAIN MEDICATION WAS NOT ENOUGH AND WANTED TO LEAVE AMA. NOTIFIED MD. MD TALKED TO THE PATIENT AND GAVE A 1 TIME ORDER. DILAUDID GIVEN IVP FOR 10/10 ABDOMINAL PAIN. PT TOLERATED WELL.
--- NOTE | 2019-11-22 23:05 | NUR ---
VANCO GIVEN PO. PT TOLERATED WELL.
[2019-11-23] VITALS: BP 123/67
--- NOTE | 2019-11-23 00:45 | NUR ---
PT WATCHING TV AND VIDEOS ON HIS PHONE. NO S/S OF DISTRESS NOTED. WILL CONTINUE TO MONITOR.
[2019-11-23] MEDS: HYDROmorphone 1 MG/ML AMP IVP PRN ×5 (02:26→21:13)
--- NOTE | 2019-11-23 02:26 | NUR ---
DILAUDID GIVEN FOR 8/10 ABDOMINAL PAIN. PT TOLERATED WELL.
--- NOTE | 2019-11-23 04:15 | NUR ---
PT PLAYING ON HIS PHONE. NO S/S OF DISTRESS NOTED. WILL CONTINUE TO MONITOR.
[2019-11-23] MEDS: VANCOMYCIN 500 MG VIAL PO SCH ×4 (05:03→23:32)
[2019-11-23] MEDS: metroNIDAZOLE 500 MG/NS PREMIX 100 ML IV SCH ×3 (05:03→20:29)
[2019-11-23] MEDS: NACL 0.9% 1,000 ML IV SCH ×2 (06:17→16:22)
--- NOTE | 2019-11-23 06:54 | NUR ---
PT SLEEPING COMFORTABLY BUT AROUSABLE. PT IN STABLE CONDITION.
[2019-11-23 07:04] LABS: BASOPHILS % (AUTO) 0.4 % (0.0-2.0); EOSINOPHILS # (AUTO) 0.2 K/uL (0-0.4); EOSINOPHILS % (AUTO) 4.3 % (0.0-4.0); HEMATOCRIT 27.6 % (36-52); MEAN CORPUSCULAR HEMOGLOBIN 27 pg (27-31); MEAN CORPUSCULAR HGB CONC 32 g/dL (33-37); MEAN CORPUSCULAR VOLUME 83.3 fL (80-94); MONOCYTES # (AUTO) 0.3 K/uL (0.8-1.0); NEUTROPHILS # (AUTO) 1.9 K/uL (1.8-7.7); NEUTROPHILS % (AUTO) 55.3 % (42.2-75.2); PLATELET COUNT (AUTO) 114 K/uL (140-450); RED BLOOD CELL COUNT(AUTO) 3.31 MIL/uL (4.20-6.10); WHITE BLOOD COUNT (AUTO) 3.5 K/uL (4.8-10.8)
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
[2019-11-23 08:00] VITALS: BP 160/81
[2019-11-23 08:06] LABS: ANION GAP 10.9 (8-16); CARBON DIOXIDE 20.2 mmol/L (21-32); CREATININE 2.6 mg/dL (0.6-1.3); POTASSIUM 3.1 mmol/L (3.5-5.1)
[2019-11-23 08:12] LABS: MAGNESIUM 1.4 mg/dL (1.8-2.4); PHOSPHORUS 2.9 mg/dL (2.5-4.9)
[2019-11-23] MEDS: ISOSORBIDE MONONITRATE 30 MG TABER PO SCH (09:29)
[2019-11-23] MEDS: hydrALAZINE 25 MG TAB PO SCH ×3 (09:30→17:03)
[2019-11-23] MEDS: TAMSULOSIN 0.4 MG CAP PO SCH (09:30)
[2019-11-23] MEDS: CARVEDILOL 12.5 MG TAB PO SCH ×2 (09:30→20:30)
[2019-11-23] MEDS: levETIRAcetam 500 MG TAB PO SCH ×2 (09:30→20:29)
--- NOTE | 2019-11-23 09:30 | NUR ---
GIVEN MORNING MEDICATION PO. EXPLAINED TO PATIENT MEDS AND SIDE EFFECTS. PATIENT VERBALIZED UNDERSTANDING. WILL CONTINUE TO MONITOR.
[2019-11-23] MEDS: SPIRONOLACTONE 25 MG TAB PO SCH (09:31)
[2019-11-23] MEDS: amLODIPine 5 MG TAB PO SCH (09:31)
--- NOTE | 2019-11-23 11:07 | NUR ---
PATIENT IS SLEEPING AT THIS TIME. NO SIGNS OF DISTRESS NOTED. BED IN LOW POSITION. CALL LIGHT IS WITHIN REACH. WILL CONTINUE TO MONITOR
--- NOTE | 2019-11-23 12:41 | NUR ---
GIVEN HYDRALAZINE PO, VANCOMYCIN, AND FLAGYL VIA IVPB. BP IS 146/86, HR 87, 02SAR 98% ROOM AIR. EXPLAINED TO PATIENT MEDS. PATIENT VERBALIZED UNDERSTANDING. BED IN LOW POSITION. CALL LIGHT IS WITHIN REACH.
--- NOTE | 2019-11-23 12:55 | NUR ---
PATIENT HAD A BLOODY RED BM. WILL NOTIFY RESIDENT DOCTOR
--- NOTE | 2019-11-23 13:03 | NUR ---
DR. DOMINGUEZ EXAMINED PATIENT.
[2019-11-23] MEDS: MAG SULF 2000 MG/WATER PREMIX 100 ML IV SCH ×2 (13:12→16:30)
--- NOTE | 2019-11-23 13:12 | NUR ---
HANG MAG SULFATE VIA IVF FOR MAG LEVEL 1.4. GIVEN DILAUDID FOR PAIN 8/10 ABDOMEN. EXPLAINED TO PATIENT MEDS. PATIENT VERBALIZED UNDERSTANDING. WILL CONTINUE TO MONITOR
--- NOTE | 2019-11-23 13:20 | NUR ---
PATIENT REQUESTED PINEAPPLE CUPS AND SODA. WILL CALL FNS
--- NOTE | 2019-11-23 13:34 | NUR ---
GAVE PINEAPPLE CUPS AND SODA TO THE PATIENT
--- NOTE | 2019-11-23 15:06 | NUR ---
PATIENT IS SITTING. TALKING ON THE PHONE. DENIES PAIN. NO SOB. BED IN LOW POSITION. CALL LIGHT IS WITHIN REACH. SEIZURE PRECAUTIONS IN PLACE. WILL CONTINUE TO MONITOR
[2019-11-23 16:00] VITALS: BP 152/96
--- NOTE | 2019-11-23 16:27 | NUR ---
DR. FONTANEZ IS SPEAKING WITH THE PATIENT AT THIS MOMENT.
--- NOTE | 2019-11-23 16:31 | NUR ---
HANG SECOND BAG OF MAG SULFATE FOR MG LEVEL 1.4. EXPLAINED TO PATIENT MED. PATIENT VERBALIZED UNDERSTANDING. BED IN LOW POSITION. CALL LIGHT IS WITHIN REACH. WILL CONTINUE TO MONITOR
--- NOTE | 2019-11-23 17:13 | NUR ---
GIVEN DILAUDID IVP FOR PAIN 8/10 ABDOMEN. HYDRALAZINE PO FOR HTN. EXPLAINED TO PATIENT MEDS. PATIENT VERBALIZED UNDERSTANDING. WILL CONTINUE TO MONITOR
[2019-11-23] MEDS ORDERED: POTASSIUM CHLORIDE 10 MEQ TABER PO SCH (17:30)
--- NOTE | 2019-11-23 17:43 | NUR ---
GIVEN K-DUR 40 MEQ PO FOR K LEVEL 3.1. EXPLAINED TO PATIENT PURPOSE AND SIDE EFFECTS. PATIENT VERBALIZED UNDERSTANDING. BED IN LOW POSITION. CALL LIGHT IS WITHIN REACH. WILL CONTINUE TO MONITOR
--- NOTE | 2019-11-23 18:01 | NUR ---
GIVEN VANCO PO. EXPLAINED TO PATIENT MEDS. PATIENT VERBALIZED UNDERSTANDING. WILL CONTINUE TO MONITOR
--- NOTE | 2019-11-23 19:02 | NUR ---
ENDORSED PATIENT TO CAREER ORIENTATION TEACHER NURSE FOR CONTINUITY OF CARE. PATIENT IS IN STABLE CONDITION
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
--- NOTE | 2019-11-23 20:29 | NUR ---
TERRY AGUDELO. COREG, KEPPRA, AND ZESTRIL GIVEN PO. PT TOLERATED WELL.
[2019-11-23] MEDS: LISINOPRIL 20 MG TAB PO SCH (20:30)
--- NOTE | 2019-11-23 21:13 | NUR ---
DILAUDID GIVEN FOR 8/10 ABDOMINAL PAIN. PT TOLERATED WELL.
--- NOTE | 2019-11-23 22:35 | NUR ---
PT AWAKE AND ALERT WATCHING TV. NO S/S OF DISTRESS NOTED. WILL CONTINUE TO MONITOR.
--- NOTE | 2019-11-23 23:32 | NUR ---
VANCO GIVEN PO. PT TOLERATED WELL.
[2019-11-24] VITALS: BP 129/68
--- NOTE | 2019-11-24 00:55 | NUR ---
PT SLEEPING COMFORTABLY BUT AROUSABLE. NO S/S OF DISTRESS. NOTED. NO COMPLAINTS OF PAIN. NO SOB. AFEBRILE. WILL CONTINUE TO MONITOR.
[2019-11-24] MEDS: NACL 0.9% 1,000 ML IV SCH ×2 (01:42→12:22)
--- NOTE | 2019-11-24 02:10 | NUR ---
PT SLEEPING COMFORTABLY BUT AROUSABLE. NO S/S OF DISTRESS NOTED. RESPIRATIONS EVEN, UNLABORED, AND WNL. WILL CONTINUE TO MONITOR.
[2019-11-24] MEDS: metroNIDAZOLE 500 MG/NS PREMIX 100 ML IV SCH ×2 (04:33→12:29)
[2019-11-24] MEDS: HYDROmorphone 1 MG/ML AMP IVP PRN ×3 (04:34→13:16)
--- NOTE | 2019-11-24 04:34 | NUR ---
DILAUDID GIVEN FOR 9/10 ABDOMINAL PAIN. FLAGYL HUNG AND RUNNING. PT TOLERATING WELL.
[2019-11-24] MEDS: VANCOMYCIN 500 MG VIAL PO SCH ×2 (05:00→12:29)
--- NOTE | 2019-11-24 05:00 | NUR ---
VANCO GIVEN PO. PT TOLERATED WELL.
--- NOTE | 2019-11-24 06:58 | NUR ---
PT SLEEPING COMFORTABLY BUT AROUSABLE. PT IN STABLE CONDITION.
--- NOTE | 2019-11-24 07:10 | NUR ---
RECEIVED REPORT FROM MANUFACTURING PROCESS ENGINEER NURSE. PT IS AAOX4, DENIES PAIN. NOTED RT UA PICC LINE RUNNING IVF PER ORDER. RESPIRATIONS EVEN AND UNLABORED ON RA. ABD SOFT, ACTIVE BS. SAFETY MEASURES IN PLACE, CALL LIGHT WITHIN REACH. REVIEWED POC WITH PT, PT VERBALIZED UNDERSTANDING.
[2019-11-24 08:00] VITALS: BP 143/81
[2019-11-24] MEDS ORDERED: POTASSIUM CHLORIDE 10 MEQ TABER PO SCH (09:00)
[2019-11-24] MEDS ORDERED: MAG SULF 2000 MG/WATER PREMIX 50 ML IV SCH (09:00)
[2019-11-24] MEDS ORDERED: PHARMACY COMMENTS MC SCH (09:00)
[2019-11-24] MEDS: SPIRONOLACTONE 25 MG TAB PO SCH (09:14)
[2019-11-24] MEDS: levETIRAcetam 500 MG TAB PO SCH (09:15)
[2019-11-24] MEDS: CARVEDILOL 12.5 MG TAB PO SCH (09:15)
[2019-11-24] MEDS: amLODIPine 5 MG TAB PO SCH (09:15)
[2019-11-24] MEDS: hydrALAZINE 25 MG TAB PO SCH ×2 (09:15→12:36)
--- NOTE | 2019-11-24 09:15 | NUR ---
ADMINISTERED MEDICATIONS PER ORDER, PT VERBALIZED UNDERSTANDING OF INDICATIONS AND POTENTIAL SIDE EFFECTS.
[2019-11-24] MEDS: ISOSORBIDE MONONITRATE 30 MG TABER PO SCH (09:18)
[2019-11-24] MEDS: TAMSULOSIN 0.4 MG CAP PO SCH (09:19)
[2019-11-24] MEDS ORDERED: VANC125C11 PO (11:13)
--- NOTE | 2019-11-24 11:40 | NUR ---
PT IS RESTING IN BED, PREOCCUPIED ON PHONE. NO S/S OF DISTRESS.
--- NOTE | 2019-11-24 13:00 | NUR ---
PT IS AWARE THAT DISCHARGE ORDER IS IN PLACE. AWAITING LAB RESULTS TO ENSURE PATIENT SAFETY PRIOR TO DISCHARGE.
[2019-11-24 14:48] LABS: ANION GAP 9.5 (8-16); CARBON DIOXIDE 22.7 mmol/L (21-32); CREATININE 2.9 mg/dL (0.6-1.3); POTASSIUM 4.2 mmol/L (3.5-5.1)
--- NOTE | 2019-11-24 14:55 | NUR ---
PER PT, HE WILL DRIVE HOME TODAY, CAR WILL BE AT EMERGENCY ROOM AREA. AWAITING FAMILY/NEIGHBOR TO DROP OFF CAR.
[2019-11-24 16:00] VITALS: BP 140/74
--- NOTE | 2019-11-24 17:55 | NUR ---
PT HAS BEEN DISCHARGED. ALL PAPERWORK SIGNED, ALL QUESTIONS ANSWERED. ALL BELONGINGS IN PT POSSESSION. PRESCRIPTIONS SENT TO PREFERRED PHARMACY. OBSERVED ASEPTIC TECHNIQUE, PICC LINE ON RT UA REMOVED, CANNULA INTACT, APPLIED PRESSURE TO AREA, NO ACTIVE BLEEDING NOTED. WRISTBANDS REMOVED. PT REFUSED WHEELCHAIR, AMBULATED OUT OF UNIT WITH STEADY GAIT LISA MCINTYRE AT SIDE. PT IN STABLE CONDITION.
== END 2019-11-24 17:55 | disposition home or self-care (01) | DRG 377 ==
LOC: MED 15:37 → MTU 18:22
PROVIDERS: ADMIT General Practice; ATTEND General Practice
PROC: 0DB68ZX Excision of Stomach, Via Natural or Artificial Opening Endoscopic, Diagnostic (ICD-10-PCS; principal; 2019-11-21 15:50)
PROC: 0DJD8ZZ Inspection of Lower Intestinal Tract, Via Natural or Artificial Opening Endoscopic (ICD-10-PCS; 2019-11-21 15:50)
PROC: 0DJD8ZZ Inspection of Lower Intestinal Tract, Via Natural or Artificial Opening Endoscopic (ICD-10-PCS; 2019-11-22)
DX: K57.31 Diverticulosis of large intestine without perforation or abscess with bleeding (principal); N17.0 Acute kidney failure with tubular necrosis; A04.72 Enterocolitis due to Clostridium difficile, not specified as recurrent; E44.0 Moderate protein-calorie malnutrition; C90.00 Multiple myeloma not having achieved remission; N18.4 Chronic kidney disease, stage 4 (severe); G40.909 Epilepsy, unspecified, not intractable, without status epilepticus; I12.9 Hypertensive chronic kidney disease with stage 1 through stage 4 chronic kidney disease, or unspecified chronic kidney disease; K59.00 Constipation, unspecified; N40.0 Benign prostatic hyperplasia without lower urinary tract symptoms; E87.8 Other disorders of electrolyte and fluid balance, not elsewhere classified; E83.42 Hypomagnesemia; E87.6 Hypokalemia; D64.9 Anemia, unspecified; Z68.38 Body mass index [BMI] 38.0-38.9, adult; Z85.46 Personal history of malignant neoplasm of prostate; Z88.5 Allergy status to narcotic agent; Z88.8 Allergy status to other drugs, medicaments and biological substances; Z79.899 Other long term (current) drug therapy; Z90.49 Acquired absence of other specified parts of digestive tract; Z83.3 Family history of diabetes mellitus; Z82.49 Family history of ischemic heart disease and other diseases of the circulatory system; Z80.0 Family history of malignant neoplasm of digestive organs
CPT/HCPCS: 36415; 71045; 80048; 80053; 80305; 81001; 82140; 82150; 82272; 82607; 82728; 82746; 82948; 83036; 83540; 83605; 83615; 83690; 83735; 83880; 84100; 84134; 84439; 84443; 85025; 85045; 85610; 85730; 86677; 87015; 87045; 87070; 87081; 96374; 99285; C1751; C9113; G0482; J1170; J2250; J2405; J3010; J3370; J3475; J3490; J7030; Q0092